=== PATIENT | male | born 2005 | race Caucasian/White ===

== ENCOUNTER 2025-04-26 13:27 | Emergency (ER) | payer OTHER, SELFPAY ==
[2025-04-26 13:29] VITALS: BP 139/73; PULSE 97; RESP 18; TEMP 36.1; O2SAT 97
[2025-04-26 13:42] VITALS: BMI 26.5
--- NOTE | 2025-04-26 13:56 | EX.ED.DYSGE1 ---
HPI History of Present Illness Chief Complaint: Overdose Narrative Narrative: 20-year-old male past medical history of migraine headaches presents after accidentally taking too much ibuprofen. He states that he is visiting his family in the area. Yesterday, he had a migraine headache that unrelenting. He took his Ubrelvy yesterday evening. At around 12:00 this afternoon, 2 hours ago, he took 5 ibuprofen. He states that he forgot that he had already taken ibuprofen, then took another 5 for total of 2000 mg. He states that his family was concerned because they called the poison control. He denies any nausea or vomiting. No Co. ingestion, no suicidal ideation or plans to hurt himself. He states that it was a mistake. PFSH PFS Medical History no medical history Home Medications ?Medication ?Instructions ?Recorded ?Last Taken ?Type NK 04/26/25 Unknown History Allergy/AdvReac Type Severity Reaction Status Date / Time No Known Allergies Allergy Verified 04/26/25 13:28 Family History no significant family his Surgical History no surgical history Social History Smoking Status: Never smoker ROS ROS ED ROS Narrative Review of systems positive for headache. Reported ingestion of 2000 mg of ibuprofen. No nausea or vomiting. No other symptoms. No chest pain or shortness of breath. EXAM Physical Exam Narrative Exam Narrative: Afebrile. Vital signs noted. Nontoxic-appearing. Cardiovascular examination reveals a regular rate and rhythm. Lungs are clear to auscultation bilaterally. Abdomen is soft and nontender with positive bowel sounds. No guarding or rebound. Neurological examination nonfocal, nonlateralizing. Psychiatric examination shows no evidence of suicidal ideation. Const Vital Signs: 04/26/25 13:29 04/26/25 15:28 Temperature 96.9 F L Temperature Source Temporal Pulse Rate 97 89 Respiratory Rate 18 16 Blood Pressure 139/73 H 141/66 H Blood Pressure Mean 95 91 Pulse Ox 97 100 Oxygen Delivery Method Room Air Room Air MDM MDM MDM Narrative Medical decision making narrative: Differential diagnosis includes but not limited to acute kidney injury versus elevation of liver enzymes. He could have had a Co. ingestion. I do not think that this was a suicide attempt. Patient will be bolused IV fluids. I will check a CBC, CMP as well as salicylate level and acetaminophen level. He was instructed not to take medication more than indicated on the bottle. I reviewed his laboratory work and he has normal white count of 7.1, hemoglobin 15.7, hematocrit 46.2, platelet count normal at 182. CMP shows glucose slightly elevated at 121 with a normal anion gap of 10, BUN normal at 10 with creatinine 0.78. LFTs are grossly unremarkable. Salicylate level is normal at less than 0.5 with acetaminophen level less than 5.0. Patient observed here in the emergency department. Upon repeat examination he is resting comfortably. There has been no vomiting. He was reassured but instructed once again not to take more ibuprofen than directed on the bottle, and he should avoid NSAID use for the next week and have his labs rechecked. At this point in time I feel he can be discharged safely home with follow-up. Return instructions reviewed. Disposition is discharged home in stable condition. History & Record Review Discussion w/independent historian: Patient Additional record(s) reviewed:: No prior records Lab Data Attestation: I reviewed the patient's lab results. Labs: Laboratory Results - last 24 hr 04/26/25 14:03 WBC 7.1 RBC 5.30 Hgb 15.7 Hct 46.2 MCV 87.2 MCH 29.6 MCHC 34.0 RDW Std Deviation 38.5 RDW Coeff of Adryan 12.0 Plt Count 182 MPV 8.5 Immature Gran % (Auto) 0.300 Neut % (Auto) 63.8 Lymph % (Auto) 24.2 [place] % (Auto) 8.6 Eos % (Auto) 2.3 Baso % (Auto) 0.8 Absolute Neuts (auto) 4.5 Absolute Lymphs (auto) 1.72 Nucleated RBC % 0 Sodium 139 Potassium 3.9 Chloride 103 Carbon Dioxide 26.2 Anion Gap 10 BUN 10 Creatinine 0.78 Estim Creat Clear Calc 158.22 Est GFR (MDRD) Non-Af 129 BUN/Creatinine Ratio 12.7 Glucose 121 H Calcium 9.7 Total Bilirubin 0.26 AST 26 ALT 29 Alkaline Phosphatase 52 Total Protein 7.0 Albumin 4.3 Globulin 2.8 Albumin/Globulin Ratio 1.6 Salicylates < 0.5 L Acetaminophen < 5.0 L Discharge Plan Triage Chief Complaint: Overdose ED Provider: Yung Banuelos Dx/Rx/DC Orders Clinical Impression: Ibuprofen overdose, Migraine headache Instructions: ED, Migraine (Classical), ED Accidental Ingestion ... Prescriptions: No Action NK Primary Care Provider: Care Physician,No Primary Referrals: NOT,DEFINED [Non-Staff, None] Activity Restrictions/Additional Instructions: Do not take more ibuprofen than the bottle directs. You should only be taking a maximum of 2 pills by mouth or 400 mg every 8 hours. Avoid the use of ibuprofen or other nonsteroidal anti-inflammatories for the next week. Have your labs rechecked by your primary care provider in 1 week. Return with vomiting blood, new or worsening symptoms. Print Language: Estonian Disposition Disposition: Home, Self Care
[2025-04-26 14:16] LABS: Hematocrit 46.2 % (40-54); Hemoglobin 15.7 g/dL (13.0-16.5); Immature Granulocytes Count 0.020 X10^3/uL (0.0-0.0); Mean Corp Hgb Conc 34.0 g/dL (32-36); Mean Corpuscular Volume 87.2 fL (80-94); Mean Platelet Vol. 8.5 fl (6.2-12.0); NRBC Flagged by Analyzer 0 % (0-5); Platelet Count 182 K/mm3 (150-450); RBC Distribution Width CV 12.0 % (11.6-14.6); RBC Distribution Width SD 38.5 fl (35.1-43.9); Red Blood Count 5.30 M/mm3 (4.6-6.2); White Blood Count 7.1 K/mm3 (4.4-11.0)
[2025-04-26 14:27] LABS: AST(SGOT) 26 U/L (<=37); Alanine Aminotransfer ALT/SGPT 29 U/L (<=46); Albumin, Serum 4.3 g/dL (3.5-5.0); Alkaline Phosphatase 52 U/L (40-129); Anion Gap 10 (5-15); BUN 10 mg/dL (4-19); BUN/Creat Ratio 12.7 RATIO (10-20); Calcium,Total 9.7 mg/dL (7.6-11.0); Carbon Dioxide 26.2 mmol/L (21.0-32.0); Chloride 103 mmol/L (98-108); Estimated Creatinine Clearance 158.22 ml/min (50-250); Globulin 2.8 g/dL (2.2-4.2); Glucose 121 mg/dL (70-99); Potassium 3.9 mmol/L (3.3-5.1)
[2025-04-26 14:30] LABS: Acetaminophen (Tylenol) Level < 5.0 ug/mL (8.0-19.0); Salicylate < 0.5 mg/dL (2.8-20.0)
[2025-04-26 15:28] VITALS: BP 141/66; PULSE 89; RESP 16; O2SAT 100
[2025-04-26 16:24] VITALS: BP 133/79; PULSE 71; RESP 16; TEMP 36.1; O2SAT 100
== END 2025-04-26 16:26 | disposition home or self-care (01) ==
PROVIDERS: Emergency Provider Emergency Medicine; Visit Provider Emergency Medicine
DX: T39.311A Poisoning by propionic acid derivatives, accidental (unintentional), initial encounter (principal); G43.909 Migraine, unspecified, not intractable, without status migrainosus
CPT/HCPCS: 36415; 80053; 80143; 80179; 85025; 99282